=== PATIENT | male | born 1985 | race Hispanic/Latino ===

== ENCOUNTER 2019-10-23 14:58 | Emergency (ER) | payer MEDICAID, OTHER ==
[2019-10-23] MEDS ORDERED: IBUPROFEN 600 MG TABLET ONE (15:19)
== END 2019-10-23 16:21 | disposition home or self-care (01) ==
LOC: EDH 14:58
DX: S93.401A Sprain of unspecified ligament of right ankle, initial encounter (principal); Z87.891 Personal history of nicotine dependence; X58.XXXA Exposure to other specified factors, initial encounter; Y93.89 Activity, other specified; Y92.89 Other specified places as the place of occurrence of the external cause; Y99.8 Other external cause status
CPT/HCPCS: 29515; 73610; 73630

== ENCOUNTER 2024-12-20 10:28 | Emergency (ER) | payer SELFPAY ==
[~2024-12-20] VITALS: Ht 165.1 cm; Wt 86.2 kg
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
[2024-12-20 10:43] LABS: IMMATURE GRANULOCYTE ABSOLUTE 0.03 K/uL (0-1); NUCLEATED RED BLOOD CELLS 0.0 % (0.0-0.19); PLATELET COUNT (AUTO) 222 K/uL (130-400); RED BLOOD CELL COUNT(AUTO) 4.83 MIL/uL (4.50-6.20); RED CELL DISTRIBUTION WIDTH 12.6 % (11.0-15.5); WHITE BLOOD COUNT (AUTO) 12.4 K/uL (4.8-10.8)
[2024-12-20 10:55] LABS: CREATININE 0.8 mg/dL (0.5-1.3); GLOMERULAR FILTR. RATE CALC 117.0 mL/min (>90); GLUCOSE,RANDOM 141.0 mg/dL (70-105); SODIUM SERUM 139.0 mmol/L (136-145); UREA NITROGEN, BLOOD 12.0 mg/dL (7-18)
--- NOTE | 2024-12-20 11:02 | EKG ---
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
[2024-12-20 11:11] LABS: CREATINE KINASE, TOTAL 749.0 U/L (21-232)
[2024-12-20] MEDS: 0.9%NACL 1000ML 1,000 ML IV STA (11:30)
--- NOTE | 2024-12-20 12:39 | HMCIMG ---
EXAM: CT Chest Without IV contrast. CLINICAL HISTORY: trauma TECHNIQUE: Axial computed tomography images of the chest without intravenous contrast. COMPARISON: None provided. FINDINGS: LUNGS: There is mild dependent airspace disease within the bilateral lower lobes that is presumed to reflect atelectasis. PLEURAL SPACES: No pneumothorax evident. No pleural effusions. HEART: No cardiomegaly. No significant pericardial effusion. 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 This may be further characterized with contrast-enhanced CT angiography of the chest on a nonemergent basis. LYMPH NODES: No lymphadenopathy is evident. UPPER ABDOMEN: The upper abdominal solid organs are unremarkable. BONES: No acute osseous abnormality. IMPRESSION: 1. No acute intrathoracic findings. Please see above for details and recommendations. /Henri
[2024-12-20 12:59] LABS: APPEARANCE,URINE CLEAR (CLEAR); GLUCOSE, URINE (UA) 50 mg/dL (NEGATIVE); LEUKOCYTE ESTERASE ,URINE NEGATIVE Leu/uL (NEGATIVE); NITRATE,URINE NEGATIVE (NEGATIVE); OCCULT BLOOD,URINE NEGATIVE (NEGATIVE)
[2024-12-20 13:00] LABS: ADD UA MICROSCOPIC YES
--- NOTE | 2024-12-20 13:00 | HMCIMG ---
EXAM: CR Chest, 1 View. CLINICAL HISTORY: cp COMPARISON: None provided. FINDINGS: LUNGS: The lungs show no infiltrate or other acute finding. PLEURAL SPACES: No evidence of pleural effusion or pneumothorax. MEDIASTINUM: Cardiac size and mediastinal contours within normal limits. BONES: No aggressive appearing osseous lesion seen. IMPRESSION: No acute cardiopulmonary pathology is evident. /[place]
[2024-12-20 13:05] LABS: AMPHET/METH SCREEN,URINE NEGATIVE (NEGATIVE); BARBITURATE SCREEN, URINE NEGATIVE (NEGATIVE); CANNABINOID SCREEN,URINE POSITIVE (NEGATIVE); COCAINE SCREEN,URINE POSITIVE (NEGATIVE)
[2024-12-20 14:20] VITALS: BP 128/80; PULSE 72; RESP 16; TEMP 98.3; O2SAT 96
--- NOTE | 2024-12-20 14:27 | NUR ---
pt pend fluid completion for dc
== END 2024-12-20 14:43 | disposition home or self-care (01) ==
LOC: EDH 10:28
DX: S20.219A Contusion of unspecified front wall of thorax, initial encounter (principal); F14.10 Cocaine abuse, uncomplicated; F12.10 Cannabis abuse, uncomplicated; R74.8 Abnormal levels of other serum enzymes; Z79.899 Other long term (current) drug therapy; V86.99XA Unspecified occupant of other special all-terrain or other off-road motor vehicle injured in nontraffic accident, initial encounter; Y93.89 Activity, other specified; Y92.89 Other specified places as the place of occurrence of the external cause; Y99.8 Other external cause status
CPT/HCPCS: 99285; 96374; 71250; 71045; 96361; 96375; 82550 ×2; 83735; 84484; 80048; 80305; 85025; 81001; 36415; 93005; J7030; J2405; J2270